=== PATIENT | female | born 1995 ===

== ENCOUNTER 2025-07-11 08:44 | Outpatient (AMB) | payer MEDICAID, SELFPAY ==
--- OUTSIDE RECORDS SUMMARY | 2025-07-11 08:57 | XMS_ITS | Clinical Summary ---
Author Organization [employer] Address [address] [place] [address] Care Team Providers Care Graphic Editor Name Role Phone Unavailable Primary Care Provider Unavailabl e Social History Tobacco Use Types Packs/Day Years Used Date Smoking Tobacco: Never Assessed Comments Unknown Sex and Gender Information Value Date Recorded Sex Assigned at Not on file Legal Sex Female 9:24 PM EDT Gender Identity Not on file Sexual Orientation Not on file Plan of Treatment Health Maintenance Due Date Last Done Comments Depression Screening 1997 HIV Screening 1997 SDOH Screening 1997 Disability Screening 1997 Alcohol/Substance Use Screening 2009 Tobacco Screening 2009 Family Planning (PISQ) 2012 HPV Vaccines (1 - 3-dose series) 2012 Hepatitis C Screening 2015 DTaP/Tdap/Td Vaccines (1 - Tdap) 2016 Hepatitis B Vaccines (1 of 3 - 19+ 3-dose series) 2016 Pap Smear 2018 COVID-19 Vaccine (1 - 2023-2 5 season) 2025 Influenza Vaccine (#1) 2025 Zoster Vaccines (1 of 2) 2047 RSV Patients and Pa tients Aged 60 years or older (1 - 1-dose 75+ series) 2072 HIB Vaccines Aged Out No longer eligi ble based on patient's age to complete this topic Hepatitis A Vaccines Aged Out No long er eligible based on patient's age to complete this topic IPV Vaccines Aged Out No longer eligi ble based on patient's age to complete this topic Meningococcal B Vaccine Aged Out No l onger eligible based on patient's age to complete this topic Meningococcal Vaccine Aged Out No michael edita eligible based on patient's age to complete this topic Pneumococcal Vaccine: Pediat rics (0 to 5 Years) and At-Risk Patients (6 to 49) Years Aged Out No longer eligible b ased on patient's age to complete this topic RSV under 20 months Aged Out No longe r eligible based on patient's age to complete this topic Rotavirus Vaccines Aged Out No longer eligible based on patient's age to complete this topic
--- NOTE | 2025-07-11 09:23 | A.OFFPC_ITS ---
Vital Signs 07/11/25 09:25 Height 5 ft 0.63 in Weight 154 lb 2 oz BMI 29.5 BP 110/78 Blood Pressure Location Lt brachial Position Sitting Pulse 92 Pulse Source Pulse Oximeter Temp 97.5 F Temp Source Temporal Artery Scan Pulse Oximetry (%) 98 Oxygen Delivery Method Room Air Intake Visit Reasons: establish care Intake Note: Patient is a new patient here to [facility] for Wellness visit . Transferring care from [facility]. Medical records have been requested and have not received. Tire Tester Required: Yes Tire Tester Language: Beading Installer Name: Lorri Information Interpreted: non-clinical & clinical (Pt decline parking supervisor prefer friend to translate for her. ) Industrial Roof Plumber: Present Accompanied by: Friend Allergies No Known Allergies Allergy (Verified 07/11/25 09:37) Tobacco use date assessed: 07/11/25 Dental Screening Dental Screen Date: 07/11/25 Did you have a dental visit in the last 12 months?: No Did you have a dental problem in the last 6 months where you did not have access to dental care?: No Was dental information given to patient?: No HPI HPI Comments History of Present Illness Details The patient is a 30-year-old female with no significant past medical history presenting to [facility] with a primary complaint of chronic back pain. The back pain began several years ago, prior to her with her now carye-hhwn-hui daughter, and has progressively worsened over time. The pain is described as a constant, dull sensation located in the middle and lower back bilaterally. The pain does not radiate. It is aggravated by wearing a tight bra and is slightly alleviated by loosening it. She has previously tried physical therapy and medications in [place], which provided only temporary relief. The patient takes pixi-fel-udrzvpk ibuprofen as needed for the pain. She reports no other medical problems, no known allergies, and has had no surgeries. Family history is notable for an uncle with lupus and a grandmother with a history of a heart attack. The patient moved to [place] in 2020 and has not seen a physician since. 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 She denies smoking, alcohol or illicit drug use. She does not exercise regularly. 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 1. Little interest or pleasure in doing things: not at all 2. Feeling down, depressed, or hopeless: not at all 3. Trouble falling or staying asleep, or sleeping too much: not at all 4. Feeling tired or having little energy: not at all 5. Poor appetite or overeating: not at all 6. Feeling bad about yourself - or that you are a failure or have let yourself or your family down: not at all 7. Trouble concentrating on things, such as reading the newspaper or watching television: not at all 8. Moving or speaking so slowly that other people could have noticed. Or the opposite - being so fidgety or restless that you have been moving around a lot more than usual: not at all 9. Thoughts that you would be better off or of hurting yourself in some way: not at all Total score: 0 Depression Screening Interpretation: Negative Depression Screening Done: Yes Source: Developed by Drs. Arsh Garcia, Kenya Salter, Canelo Monahan and colleagues, with an educational aramis from [employer]. Thrive Questionnaire Date Thrive assessed: 07/11/25 I am a: Patient What is your living situation today?: I have a steady place to live Within the past 12 months, did the food you bought not last and you didn't have the money to get more?: Never true Within the past 12 months, did you worry whether your food would run out before you got money to buy more?: Never true Do you have trouble paying for medicines?: No Do you have trouble getting transportation to medical appointments?: No Do you have trouble paying your heating and electricity bill?: No Do you have trouble taking care of your child, family member or friend?: No Do you have trouble with day-to-day activities such as bathing, preparing meals, shopping, managing finances, etc.?: No Are you currently unemployed and looking for a job?: No Are you interested in more education?: No Please select the resources that you would like help with: None Currently or been in a relationship where the following occur: No concerns reported THRIVE Score: 0 AUDIT C Alcohol Use Questionnaire (AUDIT-C) 1. How often do you have a drink containing alcohol?: Never Total Score: 0 HAYLEE-7 AMB Questionnaire HAYLEE-7 Date HAYLEE - 7 assessed: 07/11/25 Feeling nervous, anxious, or on edge: 0 = Not at all Not being able to stop or control worryin = Not at all Worrying too much about different things: 0 = Not at all Trouble relaxin = Not at all Being so restless that it is hard to sit still: 0 = Not at all Becoming easily annoyed or irritable: 0 = Not at all Feeling afraid as if something awful might happen: 0 = Not at all Total HAYLEE-7 score (0-4 normal; 5-9 mild; 10-14 moderate; 15-21 severe): 0 Source: Developed by Drs. Arsh Garcia, Kenya Salter, Canelo Monahan and colleagues, with an educational aramis from [employer]. Physical exam (Primary Care) Vital Signs: Last Vital Signs Temp 97.5 F 07/11/25 09:25 Pulse 92 07/11/25 09:25 BP 110/78 07/11/25 09:25 Pulse Ox 98 07/11/25 09:25 Oxygen Delivery Method Room Air 07/11/25 09:25 General: Well-appearing, alert, oriented ?3, in no acute distress. Cardiovascular: RRR, S1-S2 appreciated, no murmurs, rubs or gallops. Respiratory: Lungs clear to auscultation bilaterally, no wheezes, rales or rhonchi. Abdomen: Soft, nontender, nondistended. Normoactive bowel sounds. MSK: Normal range of motion in the back. Tenderness upon palpation in lumbar paraspinal muscles as well as paraspinal thoracic muscles. Negative bilateral straight leg raise test. Sensation and strength intact in bilateral lower and upper extremities. BMI result Body Mass Index 29.5 Tobacco/Smoking Status: Tobacco use Status Tobacco use date assessed 07/11/25 07/11/25 09:33 Patient Tobacco Use Status Never used Tobacco 07/11/25 09:33 e-Cigarette/Vaping Use Never Used 07/11/25 09:33 PHQ-9: PHQ-9 Score PHQ-9: Total score 0 07/11/25 09:33 Depression Screening Interpretation: Negative Thrive Assessment: Date of Thrive Assessment Date Thrive assessed 07/11/25 07/11/25 09:33 Currently or been in a relationship where the following occur: No concerns reported Coding Level of Care Code New Pt Level 4 (62095) Diagnoses Establishing care with new doctor, encounter for Z76.89 Chronic bilateral thoracic back pain M54.6; G89.29 Chronicity: chronic Back pain laterality: bilateral Chronic bilateral low back pain without sciatica M54.50; G89.29 Chronicity: chronic Back pain laterality: bilateral Sciatica presence: without sciatica Overweight (BMI 25.0-29.9) E66.3 Assessment & Plan Assessment & Plan (1) Establishing care with new doctor, encounter for: Code(s): Z76.89 - Persons encountering health services in other specified circumstances Plan: Patient with no significant past medical history presenting today to establish care. Patient has moved from [place] to [place] in 2020 and has not seen a doctor since then. (2) Thoracic back pain: Code(s): M54.6 - Pain in thoracic spine Category: Medical Qualifiers: Chronicity: chronic Back pain laterality: bilateral Qualified Code(s): M54.6 - Pain in thoracic spine; G89.29 - Other chronic pain Plan: Patient presenting with chronic thoracic and lumbar back pain, most likely musculoskeletal in origin. We will further evaluate with an x-ray of thoracic spine and lumbar spine. Naproxen 500 mg b.i.d. for 7 days. Avoid mixing with other NSAIDs including ibuprofen. Take medication with food and water. Apply heating pads to affected area twice a day Refer to physical therapy. Patient advised on the importance of continuing exercises learned in physical therapy at home, including daily stretching. (3) Low back pain: Code(s): M54.50 - Low back pain, unspecified Category: Medical Qualifiers: Chronicity: chronic Back pain laterality: bilateral Sciatica presence: without sciatica Qualified Code(s): M54.50 - Low back pain, unspecified; G89.29 - Other chronic pain Plan: as above (4) Overweight (BMI 25.0-29.9): Code(s): E66.3 - Overweight Category: Medical Plan: Obtain blood work Plan Will follow up in 4 months for annual physical Orders: Orders Complete Blood Count Auto Diff Today Z00.00 - Encounter for general adult medical examination without abnormal findings Comprehensive Met. Panel Today Z00.00 - Encounter for general adult medical examination without abnormal findings PT Evaluation and Treatment Today M54.9 - Dorsalgia, unspecified Lipid Panel with Reflex Today E66.3 - Overweight XR lumbar spine 2-3V Today M54.9 - Dorsalgia, unspecified XR thoracic spine 2V Today M54.9 - Dorsalgia, unspecified Medications: New naproxen 500 mg PO BID 20 tabs 0RF back pain
[2025-07-11 09:25] VITALS: BP 110/78; PULSE 92; TEMP 36.4; O2SAT 98; BMI 29.5
== END 2025-07-11 10:11 | disposition home or self-care (01) ==
LOC: HO.HMCH 08:45
PROVIDERS: PCP Student in an Organized Health Care Education/Training Program; Visit Provider Student in an Organized Health Care Education/Training Program
DX: Z76.89 Persons encountering health services in other specified circumstances (principal); M54.6 Pain in thoracic spine; G89.29 Other chronic pain; M54.50 Low back pain, unspecified; E66.3 Overweight

== ENCOUNTER → 2025-07-11 08:44 | Outpatient (BNVA) | payer MEDICAID, SELFPAY | PROVIDERS: PCP Student in an Organized Health Care Education/Training Program; Visit Provider Student in an Organized Health Care Education/Training Program | DX: M54.6 Pain in thoracic spine (principal); G89.29 Other chronic pain; M54.50 Low back pain, unspecified; E66.3 Overweight; Z76.89 Persons encountering health services in other specified circumstances; Z68.29 Body mass index [BMI] 29.0-29.9, adult; Z79.899 Other long term (current) drug therapy | CPT/HCPCS: 99202 ==